=== PATIENT | female | born 1975 | race African-American/Black ===

== ENCOUNTER → 2018-12-23 | Outpatient (CLI) | payer OTHER ==
--- NOTE | 2018-12-23 09:21 | KCIC ---
CHEST PA LATERAL History: Chronic cough, smoker of 23 years, left posterior chest pain Comparison: None. Findings: 2 views of the chest are submitted. There is no lobar consolidation, pleural fluid, pneumothorax. Cardiac silhouette is upper limits of normal. There are some small foci of relative nodularity of the perihilar regions bilaterally although fairly opaque. Impression: 1. No acute radiographic abnormality is identified. CT would more accurately assess nodules. Electronically signed by: Fabian Oleary MD (12/23/2018 9:18 AM) [id number]
== END | disposition home or self-care (01) ==
LOC: KCIC 08:42
PROVIDERS: ATTEND Registered Nurse
DX: R07.89 Other chest pain (principal); R05 Cough; F17.200 Nicotine dependence, unspecified, uncomplicated
CPT/HCPCS: 71046